=== PATIENT | female | born 1975 | race Caucasian/White ===

== ENCOUNTER 2016-07-13 00:41 | Emergency (ER) | payer OTHER ==
[~2016-07-13] VITALS: Ht 175.3 cm; Wt 114.2 kg
[~2016-07-13 00:41] MED LIST: ABILIFY5 MG PO; ADVAIR 250/501 DISK IH; ALLERGY RELIEF10 M1 PO; ATARAX,VISTARIL25 MG PO; ATARAX,VISTARIL50 MG PO; BACTRIM,SEPT1 TABLET PO; BENADRYL25 MG PO; BENADRYL50 MG PO; BUSPAR10 MG PO; CALCIUM500 M4 PO; CEFDINIR300 MG PO; CIPRO500 MG PO; CLOTRIMAZOLE-BE15 GM TP; CORTIZONE-10 PL57 GM TP; CYMBALTA60 MG PO; DIFLUCAN150 MG PO; DOXYCYCLINE HY100 MG PO; DOXYCYCLINE HY150 MG PO; DRISDOL50000 UNIT PO; EFFEXOR XR150 MG PO; FENOFIBRATE160 M1 PO; FLAGYL500 MG PO; FLUOXETINE HCL40 MG PO; FOLIC ACID1 MG PO; FUROSEMIDE20 MG PO; GABAPENTIN300 MG PO; GABAPENTIN600 MG PO; GABAPENTIN800 MG PO; GEODON80 MG PO; GLIPIZIDE5 MG PO; GLUCOPHAGE XR,500 MG PO; GLUCOTROL10 MG PO; GLUCOTROL5 MG PO; KEFLEX500 MG PO; LANTUS 10100 UNITS/ SC; LANTUS 3 M100 UNITS1 SC; LANTUS100 UNIT/1 SQ; LATUDA20 MG PO; LIDOCAINE20 MG/1 M5 PO; LITHIUM CARBON300 M1 PO; LOFIBRA,TRIGLI160 MG PO; METHOTREXATE2.5 MG PO; MORPHINE SULFAT15 M1 PO; MOTRIN800 MG PO; NEURONTIN100 MG PO; NOVOLOG 10100 UNITS/ SC; OPANA ER5 MG PO; OTREXUP SC; OXYCODONE HCL10 MG PO; OXYCODONE HCL5 MG PO; OXYCONTIN15 MG PO; PEN-VEE K,VEET500 MG PO; PERCOCET 10/1 TABLET PO; PERCOCET 5-3251 EACH PO; PERCOCET 5/31 TABLET PO; PERCOCET 7.51 TABLET PO; PRAVACHOL40 MG PO; PRAVACHOL80 MG PO; PRAVASTATIN SOD80 MG PO; PREDNISONE20 MG PO; PREDNISONE5 M1 PO; PREDNISONE50 MG PO; PROAIR HFA8.5 GM IH; PROVENTIL,2.5 MG/3 M IH; PROVENTIL17 GM IH; PROZAC20 MG PO; PROZAC40 MG PO; PYRIDIUM100 MG PO; PYRIDIUM200 MG PO; REGLAN5 MG PO; ROXICODONE5 MG PO; SINGULAIR CHEWAB5 MG PO; SINGULAIR10 MG PO; SKELAXIN800 MG PO; TRIGLIDE160 MG PO; TRILEPTAL300 MG PO; ULTRAM50 MG PO; VALIUM5 MG PO; VICTOZA 2-0.6 MG/0.1 SC; VITAMIN D10000 UNIT PO; XANAX0.5 MG PO; ZANAFLEX4 M1 PO; ZOFRAN ODT4 MG PO; [UNRECOGNIZED DRUG - OTHER] TP; [UNRECOGNIZED DRUG - REMARK]; [UNRECOGNIZED DRUG - REMARK]; [UNRECOGNIZED DRUG - REMARK]
[2016-07-13 00:45] VITALS: BP 130/88
== END 2016-07-13 01:45 | disposition left against medical advice (07) ==
LOC: RME 00:41 → EME 00:41 → RME 01:45
DX: R21 Rash and other nonspecific skin eruption (principal); Z53.21 Procedure and treatment not carried out due to patient leaving prior to being seen by health care provider

== ENCOUNTER 2016-08-17 16:58 | Emergency (ER) | payer OTHER ==
[~2016-08-17] VITALS: Ht 175.3 cm; Wt 115.5 kg
[2016-08-17 18:00] VITALS: BP 142/67
== END 2016-08-17 18:01 | disposition home or self-care (01) ==
LOC: EME 16:58
DX: S93.601A Unspecified sprain of right foot, initial encounter (principal); X50.9XXA Other and unspecified overexertion or strenuous movements or postures, initial encounter; W18.09XA Striking against other object with subsequent fall, initial encounter; E11.9 Type 2 diabetes mellitus without complications; Z79.4 Long term (current) use of insulin
CPT/HCPCS: 73630; 99281; 99284

== ENCOUNTER 2016-09-07 00:04 | Emergency (ER) | payer OTHER ==
[~2016-09-07] VITALS: Ht 175.3 cm; Wt 116.3 kg
[2016-09-07 00:32] LABS: ADD MIUA? NO; BILIRUBIN NEGATIVE; BLOOD NEGATIVE; COLOR YELLOW ((YELLOW)); GLUCOSE (STRIP) >=500; KETONES NEGATIVE; LEUKOCYTES NEGATIVE; NITRITE NEGATIVE; PROTEIN (STRIP) NEGATIVE; SPECIFIC GRAVITY 1.037 (1.000-1.030); UCUL ADDED? NO; UROBILINOGEN 0.2 MG/DL (0.2-1.0)
[2016-09-07 00:32] LABS: HEMATOCRIT 41.2 % (36.0-46.0); MCH 28.9 PG (29.0-34.0); MCHC 35.4 G/DL (30.0-36.0); MCV 81.4 FL (83-99); MEAN PLAT.VOLUME 10.6 uM^3 (9.5-12.4); PLATELET COUNT 258 K/uL (156-360); RBC DIS.WIDTH-CV 12.8 % (11.8-14.6); RBC DIS.WIDTH-SD 36.9 % (39-53); RED BLOOD COUNT 5.06 M/uL (3.80-5.20); WHITE BLOOD COUNT 9.8 K/uL (4.1-10.2)
[2016-09-07 00:45] LABS: CHLORIDE 102 mEq/L (99-109); POTASSIUM 3.9 mEq/L (3.7-5.4)
[2016-09-07 00:46] LABS: SODIUM 136 mEq/L (136-147)
[2016-09-07 00:48] LABS: GLUCOSE 354 mg/dL (70-99)
[2016-09-07 00:49] LABS: ANION GAP 13 MEQ/L (2-14)
[2016-09-07 00:50] LABS: TOTAL BILIRUBIN 0.3 mg/dL (0.0-1.0)
[2016-09-07 00:51] LABS: ALKALINE PHOSPHATASE 78 IU/L (3-129); GFR ESTIMATE (CALCULATED) > 59 mL/min/
[2016-09-07 00:53] LABS: UREA NITROGEN (BUN) 14 mg/dL (9-23)
[2016-09-07 01:01] LABS: QUANTITATIVE HCG < 4.0 MIU/ML
[2016-09-07] MEDS ORDERED: BENTYL20 MG PO (02:42)
[2016-09-07 03:16] VITALS: BP 102/87
[2016-09-07 03:24] LABS: POINT-OF-CARE METER ID UU13113702
== END 2016-09-07 03:17 | disposition home or self-care (01) ==
LOC: EME 00:04
PROVIDERS: Emergency Medicine
DX: R10.31 Right lower quadrant pain (principal); R10.32 Left lower quadrant pain; E11.65 Type 2 diabetes mellitus with hyperglycemia; Z79.4 Long term (current) use of insulin; R11.0 Nausea; F17.200 Nicotine dependence, unspecified, uncomplicated
CPT/HCPCS: 74177; 76705; 80053; 81003; 82948; 84702; 85027; 99281; 99284; J7030

== ENCOUNTER 2016-09-24 10:15 | Emergency (ER) | payer OTHER ==
[~2016-09-24] VITALS: Ht 175.3 cm; Wt 117.0 kg
[~2016-09-24 10:15] MED LIST changes: +BENTYL20 MG PO
[2016-09-24 10:36] VITALS: BP 141/97
[2016-09-24 11:23] LABS: HEMATOCRIT 42.7 % (36.0-46.0); MCH 28.5 PG (29.0-34.0); MCHC 34.2 G/DL (30.0-36.0); MCV 83.4 FL (83-99); MEAN PLAT.VOLUME 10.9 uM^3 (9.5-12.4); PLATELET COUNT 263 K/uL (156-360); RBC DIS.WIDTH-CV 12.3 % (11.8-14.6); RBC DIS.WIDTH-SD 37.6 % (39-53); RED BLOOD COUNT 5.12 M/uL (3.80-5.20); WHITE BLOOD COUNT 7.3 K/uL (4.1-10.2)
[2016-09-24 11:28] LABS: ADD MIUA? YES; BILIRUBIN NEGATIVE; BLOOD LARGE; COLOR AMBER ((YELLOW)); GLUCOSE (STRIP) >=500; KETONES NEGATIVE; LEUKOCYTES NEGATIVE; NITRITE NEGATIVE; PROTEIN (STRIP) 100; SPECIFIC GRAVITY 1.043 (1.000-1.030); UROBILINOGEN 0.2 MG/DL (0.2-1.0)
[2016-09-24 11:52] LABS: BACTERIA NONE SEEN /HPF; EPITHELIAL CELLS 2+ /HPF; MUCUS 2+ /LPF; RED BLOOD CELLS TNTC /HPF (0-5); UCUL ADDED? NO; WHITE BLOOD CELLS 20-30 /HPF (0-5)
== END 2016-09-24 12:48 | disposition left against medical advice (07) ==
LOC: EME 10:15
DX: O20.9 Hemorrhage in early pregnancy, unspecified (principal); R10.9 Unspecified abdominal pain; Z53.21 Procedure and treatment not carried out due to patient leaving prior to being seen by health care provider
CPT/HCPCS: 81003; 84702; 85027; 86900; 86901; 99281; 99283

== ENCOUNTER 2016-10-06 16:19 | Emergency (ER) | payer OTHER ==
[~2016-10-06] VITALS: Ht 175.3 cm; Wt 118.2 kg
[2016-10-06] MEDS ORDERED: FLEXERIL10 MG PO (19:03)
[2016-10-06 19:16] VITALS: BP 131/80
== END 2016-10-06 19:17 | disposition home or self-care (01) ==
LOC: EME 16:19
DX: S43.402A Unspecified sprain of left shoulder joint, initial encounter (principal); X50.0XXA Overexertion from strenuous movement or load, initial encounter
CPT/HCPCS: 73030; 99281; 99284

== ENCOUNTER 2017-01-03 15:00 | Emergency (ER) | payer OTHER ==
[~2017-01-03] VITALS: Ht 172.7 cm; Wt 116.6 kg
[~2017-01-03 15:00] MED LIST changes: +FLEXERIL10 MG PO
[2017-01-03 15:38] LABS: HEMATOCRIT 41.7 % (36.0-46.0); MCH 28.1 PG (29.0-34.0); MCHC 33.8 G/DL (30.0-36.0); MCV 83.2 FL (83-99); MEAN PLAT.VOLUME 10.2 uM^3 (9.5-12.4); PLATELET COUNT 247 K/uL (156-360); RED BLOOD COUNT 5.01 M/uL (3.80-5.20); WHITE BLOOD COUNT 9.5 K/uL (4.1-10.2)
[2017-01-03 15:48] LABS: CHLORIDE 102 mEq/L (99-109); POTASSIUM 3.7 mEq/L (3.7-5.4); SODIUM 136 mEq/L (136-147)
[2017-01-03 15:49] LABS: GLUCOSE 135 mg/dL (70-99)
[2017-01-03 15:51] LABS: ANION GAP 7 MEQ/L (2-14)
[2017-01-03 15:53] LABS: GFR ESTIMATE (CALCULATED) > 59 mL/min/
[2017-01-03 15:54] LABS: UREA NITROGEN (BUN) 9 mg/dL (9-23)
[2017-01-03 15:59] LABS: TROP-I INTERPRETATION NEGATIVE; TROPONIN-I < 0.01 ng/mL (0.0-0.30)
[2017-01-03 17:44] LABS: QUANTITATIVE HCG < 4.0 MIU/ML
[2017-01-03] MEDS ORDERED: LANTUS 3 M100 UNITS1 SC (17:54)
[2017-01-03] MEDS ORDERED: SINGULAIR10 MG PO (18:15)
[2017-01-03] MEDS ORDERED: OXYCODONE HCL10 MG PO (18:17)
[2017-01-03 19:00] LABS: TROP-I INTERPRETATION NEGATIVE; TROPONIN-I < 0.01 ng/mL (0.0-0.30)
[2017-01-03 21:10] VITALS: BP 121/77
== END 2017-01-03 21:11 | disposition left against medical advice (07) ==
LOC: EME 15:00
PROVIDERS: Physician Assistant Medical
DX: R51 Headache (principal); R07.9 Chest pain, unspecified; E11.9 Type 2 diabetes mellitus without complications; Z79.4 Long term (current) use of insulin; J44.9 Chronic obstructive pulmonary disease, unspecified; E78.00 Pure hypercholesterolemia, unspecified; K21.9 Gastro-esophageal reflux disease without esophagitis; F32.9 Major depressive disorder, single episode, unspecified; F17.200 Nicotine dependence, unspecified, uncomplicated; M51.26 Other intervertebral disc displacement, lumbar region
CPT/HCPCS: 71020; 80048; 84484; 84702; 85027; 93005; 99281; 99284; J0780; J1885

== ENCOUNTER 2017-02-04 05:57 | Emergency (ER) | payer OTHER ==
[~2017-02-04] VITALS: Ht 175.3 cm; Wt 118.9 kg
[2017-02-04 08:38] VITALS: BP 133/87
== END 2017-02-04 08:38 | disposition home or self-care (01) ==
LOC: EME 05:57
DX: S40.012A Contusion of left shoulder, initial encounter (principal); Y92.007 Garden or yard of unspecified non-institutional (private) residence as the place of occurrence of the external cause; Y93.01 Activity, walking, marching and hiking; W01.0XXA Fall on same level from slipping, tripping and stumbling without subsequent striking against object, initial encounter; M41.9 Scoliosis, unspecified; K21.9 Gastro-esophageal reflux disease without esophagitis; E11.9 Type 2 diabetes mellitus without complications; J45.909 Unspecified asthma, uncomplicated; Z87.442 Personal history of urinary calculi; F17.200 Nicotine dependence, unspecified, uncomplicated
CPT/HCPCS: 73030; 99281; 99284

== ENCOUNTER 2017-02-17 11:18 | Emergency (ER) | payer OTHER ==
[~2017-02-17] VITALS: Ht 175.3 cm; Wt 121.2 kg
[2017-02-17] MEDS ORDERED: ZOFRAN ODT4 MG PO (14:10)
[2017-02-17] MEDS ORDERED: FIORICET,ESG1 TABLET PO (14:10)
[2017-02-17 14:40] VITALS: BP 117/74
== END 2017-02-17 14:41 | disposition home or self-care (01) ==
LOC: EME 11:18
DX: G43.909 Migraine, unspecified, not intractable, without status migrainosus (principal); E11.9 Type 2 diabetes mellitus without complications; Z79.4 Long term (current) use of insulin; Z87.442 Personal history of urinary calculi; Z88.6 Allergy status to analgesic agent; Z91.013 Allergy to seafood
CPT/HCPCS: 99281; 99284; J1885

== ENCOUNTER 2017-03-10 16:04 | Emergency (ER) | payer OTHER ==
[~2017-03-10] VITALS: Ht 175.3 cm; Wt 120.5 kg
[~2017-03-10 16:04] MED LIST changes: +FIORICET,ESG1 TABLET PO
[2017-03-10 20:35] VITALS: BP 128/74
== END 2017-03-10 20:37 | disposition home or self-care (01) ==
LOC: EME 16:04
DX: S39.012A Strain of muscle, fascia and tendon of lower back, initial encounter (principal); M54.42 Lumbago with sciatica, left side; G89.29 Other chronic pain; W18.30XA Fall on same level, unspecified, initial encounter; E11.9 Type 2 diabetes mellitus without complications; Z79.4 Long term (current) use of insulin; F17.200 Nicotine dependence, unspecified, uncomplicated; Z87.442 Personal history of urinary calculi; Z88.6 Allergy status to analgesic agent; Z91.013 Allergy to seafood
CPT/HCPCS: 72100; 99281; 99284

== ENCOUNTER 2017-09-27 16:02 | Emergency (ER) | payer OTHER ==
[~2017-09-27] VITALS: Ht 175.3 cm; Wt 121.8 kg
[~2017-09-27 16:02] MED LIST changes: +ALBUTEROL2.5 MG/3 M IH; +LAMISIL250 MG PO; +LIPITOR40 MG PO; +NEURONTIN600 MG PO; +NITROSTAT0.4 MG SL; +NOVOLOG MI100 UNIT/2 SC; +ONCE DAILY1 EACH PO; +PEPCID20 MG PO; +TRADJENTA5 MG PO; +VENTOLIN HFA18 GM IH
[2017-09-27] MEDS ORDERED: PEN-VEE K,VEET500 MG PO (17:18)
[2017-09-27 18:19] VITALS: BP 125/81
== END 2017-09-27 18:20 | disposition home or self-care (01) ==
LOC: EME 16:02
DX: R51 Headache (principal); J44.9 Chronic obstructive pulmonary disease, unspecified; E11.9 Type 2 diabetes mellitus without complications; Z79.4 Long term (current) use of insulin; F17.200 Nicotine dependence, unspecified, uncomplicated; K21.9 Gastro-esophageal reflux disease without esophagitis; M41.9 Scoliosis, unspecified; F43.10 Post-traumatic stress disorder, unspecified; F60.3 Borderline personality disorder; Z88.1 Allergy status to other antibiotic agents; Z88.6 Allergy status to analgesic agent
CPT/HCPCS: 99281; 99284; J1885

== ENCOUNTER 2017-12-15 06:42 | Day surgery (SDC) | payer OTHER ==
[~2017-12-15] VITALS: Ht 175.3 cm; Wt 134.0 kg
[~2017-12-15 06:42] MED LIST changes: +HUMULIN R500 UNIT/1 SC; +HUMULIN R500 UNITS/ SC; +NORVASC2.5 MG PO; +TRULICITY0.75 MG/0. SC
[2017-12-15 07:28] VITALS: BP 139/77
[2017-12-15 13:28] VITALS: BP 120/67
[2017-12-15 15:18] VITALS: BP 157/67
[2017-12-15 19:43] VITALS: BP 127/64
[2017-12-16 00:03] VITALS: BP 108/61
[2017-12-16 03:44] VITALS: BP 117/69
[2017-12-16 07:10] VITALS: BP 130/66
== END 2017-12-16 08:40 | disposition home or self-care (01) ==
LOC: SDC 06:42 → ENRESERV 11:34 → 2SOUTH 11:35 → SDC 11:49 → ENRESERV 12:02 → 2EAST 13:07 → SDC 13:22 → 2EAST 12-16 08:40
PROVIDERS: Obstetrics & Gynecology
DX: N92.0 Excessive and frequent menstruation with regular cycle (principal); L27.0 Generalized skin eruption due to drugs and medicaments taken internally; T38.5X5A Adverse effect of other estrogens and progestogens, initial encounter; E11.9 Type 2 diabetes mellitus without complications; I10 Essential (primary) hypertension; J44.9 Chronic obstructive pulmonary disease, unspecified; Z87.891 Personal history of nicotine dependence; Z88.8 Allergy status to other drugs, medicaments and biological substances; Z79.4 Long term (current) use of insulin
CPT/HCPCS: 82948; 88307; G0378; J0131; J0690; J1170; J1815; J1885; J2250; J2405; J2710; J3010; J7120; J7643

== ENCOUNTER 2018-01-29 11:28 | Emergency (ER) | payer OTHER ==
[~2018-01-29] VITALS: Ht 175.3 cm; Wt 128.0 kg
[2018-01-29] MEDS ORDERED: FLEXERIL10 MG PO (13:03)
[2018-01-29] MEDS ORDERED: MOTRIN800 MG PO (13:03)
[2018-01-29 13:35] VITALS: BP 154/91
== END 2018-01-29 13:35 | disposition home or self-care (01) ==
LOC: EME 11:28
DX: S80.02XA Contusion of left knee, initial encounter (principal); V48.5XXA Car driver injured in noncollision transport accident in traffic accident, initial encounter; W22.8XXA Striking against or struck by other objects, initial encounter; Y92.410 Unspecified street and highway as the place of occurrence of the external cause; Z91.013 Allergy to seafood; Z88.6 Allergy status to analgesic agent; Z88.5 Allergy status to narcotic agent; Z88.1 Allergy status to other antibiotic agents; Z88.8 Allergy status to other drugs, medicaments and biological substances
CPT/HCPCS: 73564; 99281; 99284